=== PATIENT | female | born 1995 | race Caucasian/White ===

== ENCOUNTER 2017-02-14 00:23 | Emergency (ER) | payer OTHER ==
[2017-02-14] MEDS ORDERED: NO HOME MEDICATION XX (00:47)
== END 2017-02-14 02:20 ==
LOC: EDMED 00:23
DX: G43.909 Migraine, unspecified, not intractable, without status migrainosus (principal); J45.909 Unspecified asthma, uncomplicated
CPT/HCPCS: J1200; J1885; J2765; J7030